=== PATIENT | male | born 1960 | race Asian ===

== ENCOUNTER → 2024-01-26 06:33 | Day surgery (SDC) | payer BC, SELFPAY ==
[2024-01-26 07:28] LABS: Glucose - Point of Care 113 mg/dl (70-99)
== END ==
LOC: GI 06:33
PROVIDERS: ATTENDING PHYSICIAN Specialist
DX: Z12.11 Encounter for screening for malignant neoplasm of colon (principal); K62.1 Rectal polyp; K64.8 Other hemorrhoids; Z86.010 Personal history of colon polyps
CPT/HCPCS: 45380; 88305; 82962